=== PATIENT | female | born 1965 | race Caucasian/White ===

== ENCOUNTER → 2020-01-14 11:14 | Outpatient (CLI) | payer OTHER, SELFPAY ==
--- NOTE | ~2020-01-14 | MR_ITS ---
EXAMINATION: MR lumbar spine wo con EXAM DATE: 01/14/2020 12:00 INDICATION: Low back pain. History of spinal stenosis. Left hip and bilateral knee pain. TECHNIQUE: Multi-sequential, multiplanar MR images of the lumbar spine were obtained without contrast . Sagittal T1, T2, T2 fat saturation images. Axial T2 weighted images. There is no prior study for comparison. FINDINGS: There is mild upper lumbar dextroscoliosis. There is mild to moderate disc disease at L2-3 and L3-4, mild at L4-5 and L5-S1. There is 2 mm retrolisthesis L3 on L4. The conus medullaris termina brooke at the L1/2 level and has normal signal intensity and morphology. There are no suspicious marrow signal abnormalities. Paraspinal soft tissue is unremarkable. Level by level evaluation: T12-L1: Disc does not extend beyond the endplate margin. Facet arthropathy: Mild. Neural foraminal stenosis: No stenosis. Central canal stenosis: No stenosis. L1-L2: Disc does not extend beyond the endplate margin. Facet arthropathy: Mild. Neural foraminal stenosis: No stenosis. Central canal stenosis: No stenosis. L2-L3: There is a mild diffuse disc bulge. Facet arthropathy: Mild. Neural foraminal stenosis: No stenosis. Central canal stenosis: Mild. L3-L4: There is a moderate diffuse disc bulge. Facet arthropathy: Mild to moderate. Neural foraminal stenosis: Mild left. Central canal stenosis: Mild to moderate. Some nerve root crowding. L4-L5: There is a mild to moderate diffuse disc bulge. Facet arthropathy: Mild to moderate. Neural foraminal stenosis: Mild bilateral. Central canal stenosis: Mild to moderate. L5-S1: There is a mild diffuse disc bulge. Facet arthropathy: Mild. Neural foraminal stenosis: No stenosis. Central canal stenosis: Mild. IMPRESSION: 1. Mild to moderate lumbar spondylosis. 2. Mild upper lumbar dextroscoliosis. Reviewed, dictated and finalized at location A.
== END ==
PROVIDERS: PCP Internal Medicine; Visit Provider Physical Medicine & Rehabilitation Pain Medicine
DX: M48.07 Spinal stenosis, lumbosacral region (principal); M47.896 Other spondylosis, lumbar region
CPT/HCPCS: 72148

== ENCOUNTER 2020-03-29 11:10 | Observation (INO) | payer OTHER, SELFPAY ==
[2020-03-29] VITALS (11 sets, daily range): BP systolic 101–156; BP diastolic 54–92; PULSE 80–113; RESP 7–18; TEMP 36.1–36.6; O2SAT 97–100; BMI 23.3
--- NOTE | ~2020-03-29 | NM_ITS ---
EXAMINATION: NM gene stress w perfusion DATE: 03/30/2020 09:50 INDICATION: Chest pain. TECHNIQUE: Rest images were obtained following intravenous administration of 10.5 mCi Tc99m tetrofosm in (Myoview). The patient was infused intravenously with Lexiscan (regadenoson). Then, 33 mCi Tc99m t etrofosmin (Myoview) was administered intravenously, and stress images were obtained. Data was recons tructed into short axis and horizontal and vertical long axis SPECT images. Gated SPECT images were a lso obtained. COMPARISON: CT abdomen and pelvis 11/26/2017 FINDINGS: There is no definite reversible or fixed perfusion abnormality to suggest ischemia or infar ction. There is no segmental wall motion abnormality. Left ventricular ejection fraction measures > 70%. IMPRESSION: 1. No definite ischemia or infarct. 2. Normal left ventricular ejection fraction measuring >70%. Reviewed, dictated and finalized at location A.
--- NOTE | ~2020-03-29 | XR_ITS ---
EXAMINATION: XR chest 2V DATE: 03/29/2020 11:50 INDICATION: Chest pain. Palpitations. TECHNIQUE: Frontal and lateral views of the chest were obtained. COMPARISON: Chest single view 02/21/2019 FINDINGS: A calcified right lung nodule and calcified hilar lymph nodes are consistent with old granu lomatous disease. No pleural effusion or pneumothorax. The heart size is normal. Surgical clips in th e right upper quadrant are likely from cholecystectomy. IMPRESSION: 1. No acute cardiopulmonary disease. Reviewed, dictated and finalized at location A.
--- NOTE | 2020-03-29 11:16 | ED.GENADULT ---
HPI - General Adult General Chief complaint: Chest Pain Stated complaint: heart palpations, nausea, ALMEIDA Time Seen by Provider: 03/29/20 11:16 Source: patient Mode of arrival: ambulatory Limitations: no limitations History of Present Illness HPI narrative: Patient is a 54-year-old female with a history of fibromyalgia, depression, who presents for evaluation of chest pain. Patient reports pain in the center of her chest over the past several days. Patient states that she just does not feel right. She endorses fatigue, weakness without focal numbness or focal weakness. She reports nausea without vomiting. No fever, chills, cough or shortness of breath. She reports palpitations. She reports chest pain which is dull and aching in nature without radiation to the jaw, shoulder, or back. No abdominal pain. No flank pain. Patient reports chronic back pain which is unchanged. No difficulty with ambulation. No vision changes. Patient currently undergoing a work-up for lupus. Related Data Home Medications Medication Instructions Recorded Confirmed aspirin 81 mg PO DAILY 03/29/20 bupropion HCl 150 mg PO QAM 03/29/20 duloxetine 62 mg PO BID 03/29/20 levothyroxine 25 mcg PO QAM 03/29/20 montelukast [Singulair] 10 mg PO HS 03/29/20 pilocarpine HCl 10 mg PO TID 03/29/20 pregabalin 75 mg PO BID 03/29/20 03/29/20 Allergies Allergy/AdvReac Type Severity Reaction Status Date / Time No Known Allergies Allergy Verified 03/29/20 11:51 Review of Systems Review of Systems: Narrative: CONSTITUTIONAL: Denies fever, chills, or sweats. EYES: Denies visual changes, redness, or discharge. ENT: Denies rhinorrhea, congestion, sore throat, or otalgia. CARDIOVASCULAR: Reports chest pain, palpitations, denies edema RESPIRATORY: Denies cough or dyspnea. GASTROINTESTINAL: Denies abdominal pain, reports nausea, no vomiting GENITOURINARY: Denies dysuria or hematuria. SKIN: Denies rash or itching. MUSCULOSKELETAL: Reports chronic back pain NEUROLOGIC: Reports headache, denies numbness, reports nonfocal weakness PSYCHIATRIC: Reports anxiety and depression PMF Past Medical History Medical History (Updated 03/29/20 @ 13:40 by Isabella Stewart MD) Anxiety Depression Fibromyalgia Surgical History Surgical History (Updated 03/29/20 @ 11:32 by Isabella Stewart MD) History of appendectomy Hx of cholecystectomy Family History Family History (Updated 02/01/18 @ 08:14 by DOCTOR UNKNOWN) Mother Hypertension Sibling Hypertension Family history of malignant neoplasm of breast in first degree relative Father Hypertension Other Diabetes mellitus Family history of malignant neoplasm Social History Social History Smoking status: Never smoker Alcohol intake: current Gender identity (if verbalized by the patient): Female Exam Narrative: Exam Narrative: GENERAL: Awake, alert, conversant HEAD: Normocephalic, atraumatic. EYES: PERRLA and EOMI. ENT: Nares clear, no rhinorrhea or epistaxis. Mucous membranes moist. NECK: Supple. CHEST: No respiratory distress, breathing even and non labored HEART: Borderline tachycardic rate, sinus rhythm ABDOMEN:Non distended, non tender EXTREMITIES: Normal range of motion. No edema. SKIN: Warm, dry, no rash. NEURO:No focal deficits. Alert and oriented x3 Psych: Flat affect, appears anxious Course Vital Signs Vital signs: Vital Signs Temperature 36.4 C L 03/29/20 11:18 Pulse Rate 103 H 03/29/20 11:18 Respiratory Rate 12 03/29/20 11:18 Blood Pressure 156/92 H 03/29/20 11:18 Pulse Oximetry 98 03/29/20 11:18 Temperature 36.4 C L 03/29/20 11:18 Pulse Rate 94 03/29/20 13:35 Respiratory Rate 15 03/29/20 13:35 Blood Pressure 145/84 H 03/29/20 13:35 Pulse Oximetry 97 03/29/20 13:35 Medical Decision Making MDM Narrative Medical decision making narrative: Patient presented for evaluation o
--- NOTE | 2020-03-29 11:17 | ECG_ITS ---
Measurements Intervals [place] Rate: 92 P: 78 AL: 152 QRS: 69 QRSD: 83 T: 66 QT: 307 QTc: 381 Interpretive Statements SINUS RHYTHM POSSIBLE RIGHT ATRIAL ENLARGEMENT LEFT ATRIAL ENLARGEMENT RSR' IN V1 OR V2, PROBABLY NORMAL VARIANT BORDERLINE ST ABNORMALITY- ANTEROLAT/INF LEADS BASELINE ARTIFACT- I, II, III, AVR, AVL, AVF BORDERLINE ECG Electronically Signed On 03-29-2020 11:47:55 CDT by Efe Ryan D.O.
[2020-03-29] MEDS: ASPIRIN 81 MG CHEWABLE TABLET 324 MG PO (11:30)
--- NOTE | 2020-03-29 11:32 | PC.NURSE ---
Called lab to add on d-dimer.
--- NOTE | 2020-03-29 11:33 | PC.NURSE ---
Called lab to add on TSH.
[2020-03-29 11:46] LABS: Basophils Absolute Auto 0.1 K/mm3 (0.0-0.1); Basophils Percent Auto 0.8 % (0.2-1.2); Eosinophils Absolute Auto 0.2 K/mm3 (0-0.3); Eosinophils Percent Auto 3.2 % (0-4.4); Hematocrit 46.2 % (37.0-47.0); Hemoglobin 15.9 g/dL (12.0-15.0); Immature Granulocyte Absolute 0.03 K/mm3 (0.00-0.031); Immature Granulocyte Percent A 0.4 % (0-0.5); Lymphocytes Absolute Auto 1.98 K/mm3 (0.9-3.2); Lymphocytes Percent Auto 27.9 % (18.3-44.2); Mean Corpuscular HGB Conc 34.4 g/dl (32-36); Mean Corpuscular Hemoglobin 29.1 pg (26-34); Mean Corpuscular Volume 84.6 fl (80-100); Mean Platelet Volume 9.7 fl (7.4-10.4); Monocytes Absolute Auto 0.4 K/mm3 (0.1-0.6); Monocytes Percent Auto 6.2 % (2.6-8.5); Neutrophils Absolute Auto 4.4 K/mm3 (1.3-6.7); Neutrophils Percent Auto 61.5 % (45.5-73.1); Platelet Count Result 359 k/mm3 (150-375); Red Blood Count 5.46 M/mm3 (4.2-5.4); Red Cell Distribution Width 12.4 % (11.5-14.5); White Blood Count 7.1 K/mm3 (4.5-10.0)
[2020-03-29] MEDS: NITROGLYCERIN SL 0.4 MG TABLET SUBLINGUAL ×3 (12:02→21:49)
[2020-03-29] MEDS: ACETAMINOPHEN 500 MG TABLET 1000 MG PO (12:03)
[2020-03-29] MEDS: MORPHINE SULFATE 4 MG/ML INJ IV PUSH (12:03)
[2020-03-29] MEDS: SODIUM CHLORIDE 0.9% IV 1,000 ML 999 ML IV CONT (12:03)
[2020-03-29] MEDS: ONDANSETRON INJ 4 MG/2 ML VIAL IV PUSH ×2 (12:03→15:20)
[2020-03-29 12:19] LABS: Blood Urea Nitrogen 9 mg/dL (7-17); Calcium 9.8 mg/dL (8.4-10.2); Carbon Dioxide 32 mmol/L (22-30); Chloride 104 mmol/L (98-107); Estimated CRCL calculation 57 ml/min; Estimated Glomerular Filt Rate > 60; Glucose 98 mg/dL (65-105); Potassium 4.5 mmol/L (3.4-5.0); Sodium 139 mmol/L (137-145)
[2020-03-29 12:21] LABS: Prothrombin Time 12.5 Seconds (11.1-14.7)
[2020-03-29 12:22] LABS: Partial Thromboplastin Time 40.5 SECONDS (22.3-36.8)
[2020-03-29 12:27] LABS: D Dimer 0.27 ug/mL (<0.48)
[2020-03-29 12:31] LABS: Troponin I < 0.012 ng/mL (0.000-0.034)
[2020-03-29 13:30] LABS: Add Urine Microscopic? YES; Appearance Urine Clear (Clear); Bacteria Urine 1+ /hpf; Bilirubin Urine Negative (Negative); Blood Urine 1+ (Negative); Color Urine Straw (Yellow); Glucose Urine UA Negative (Negative); Ketones Urine Negative (Negative); Leukocyte Esterase Ur Negative LEU/UL (Negative); Nitrate Urine Negative (Negative); Protein Urine Negative (Negative); Specific Grav Ur 1.005 (1.001-1.035); Urobilinogen Urine Negative mg/dL (<2.0); WBC Urine 0-3 /hpf
[2020-03-29 14:50] LABS: Troponin I < 0.012 ng/mL (0.000-0.034)
--- NOTE | 2020-03-29 15:31 | ADMGEN ---
This patient, Betina Sweeney, was admitted to IMU Room 212-01. Patient/family oriented to hospital policies and general routines including ID bracelet, bed and alarms, visiting hours, pain management, procedures, bathroom and other care routines, personal items, smoking policy, room service/diet, and visiting hours. Valuables list has been completed. Information on how to activate the Rapid Response Team has been discussed. Patient/Family are encouraged to report perceived risks to care and to ask questions if they do not understand what they are told or what they should do.
--- NOTE | 2020-03-29 15:52 | PM.IMHP ---
H&P: HPI History of Present Illness Chief complaint: chest pain Narrative: Cardiology short-stay H and P summary: Chief complaint: Chest pain Betina Sweeney is a 54 year old female with past medical history significant for fibromyalgia, depression, hypothyroidism who was in her usual state of health when she noted 5 days or so ago feeling more fatigue, generalized weakness just not feeling well. This morning she woke around 7:00 a.m. not feeling well but without chest pain until after making breakfast for her she felt very fatigued and wiped out so she laid down on the couch for approximately 15 minutes. No clear aggravating or relieving factor, although she admits it was made worse with ambulation at one point earlier today. She then awoke with significant 7/10 chest pain described as a tightness radiating across the left and right side like a band. There is no further radiation or associated shortness of breath. She did note sensations of needing to take a deeper breath but denies limiting exertional dyspnea. She notes she has been very fatigued for the past couple days has been sleeping an unusual amount. She gets exhausted with minimal activities which she was able to tolerate well previously. She states that her current symptoms are nothing like her fibromyalgia. She notified her primary care physician who advised her to present to the emergency department. In the ER she was experiencing chest pain for which she received sublingual nitroglycerin and intravenous morphine. She states her pain improved and nearly completely resolved she thinks most directly after 2 sublingual nitroglycerin but then gradually returned. She noted nausea throughout the week and in association with this chest pain for which Zofran was administered. She denies palpitations, dizziness, near-syncope or syncope. She woke up with a headache and ringing in her ears as well. Denies fevers, chills, cough, lower extremity edema, orthopnea or PND. She denies recent illnesses or sick contacts. She denies abdominal pain. Her symptoms have no association with meals. She denies dysuria, hematuria, melena, bright red blood per rectum. She was sent only change in her medications was increase in her Lyrica from 75 mg to 100 mg twice daily on Thursday. She has no history of CAD, dyslipidemia, diabetes mellitus, PE/DVT or bleeding complications. She has a history of palpitations but no diagnosed arrhythmia. She notes her blood pressure had been elevated prior to her to her diagnosis of fibromyalgia which date review to pain and has been off medications for quite some time. She rates her current discomfort as a 4/10 but declined nitroglycerin or other treatment. Review of Systems Review of Systems: All systems reviewed & are unremarkable except as noted in HPI and below Constitutional: Constitutional: Reports as per HPI, Reports no additional constitutional complaints, Reports fatigue, Reports lethargy and Reports weakness Eyes: Eyes: Reports as per HPI and Reports no additional eye complaints ENT: Reports system reviewed and no additional complaints, except as documented and Reports as per HPI Cardiovascular: Cardiovascular: Reports as per HPI, Reports no additional cardiovascular complaints and Reports chest pain Respiratory: Respiratory: Reports as per HPI, Reports no additional respiratory complaints, Denies cough, Denies dyspnea, Denies dyspnea on exertion and Denies wheezing Gastrointestinal: Gastrointestinal: Reports as per HPI, Reports no additional gastrointestinal complaints, Denies abdominal pain, Denies melena, Denies hematochezia, Denies heartburn, Denies diarrhea, Reports nausea, Denies vomiting and Denies hematemesis Genitourinary: Genitourinary: Reports as per HPI, Denies hematuria and Denies dysuria Musculoskeletal: Musculoskeletal: Reports no additional musculoskeletal complaints and Reports as per HPI Integumentary/Breasts: Skin/Breast: Reports syste
[2020-03-29] MEDS: PREGABALIN 50 MG CAPSULE 100 MG PO (17:25)
[2020-03-29] MEDS: DULOXETINE 60 MG CAPSULE.DR PO (17:25)
[2020-03-29] MEDS: PANTOPRAZOLE 40 MG TABLET PO (17:25)
[2020-03-29 19:10] LABS: Troponin I < 0.012 ng/mL (0.000-0.034)
[2020-03-29] MEDS: MONTELUKAST SODIUM 10 MG TABLET PO (20:03)
[2020-03-29] MEDS: ACETAMINOPHEN 325 MG TABLET 650 MG PO (21:49)
[2020-03-30] VITALS (8 sets, daily range): BP systolic 101–129; BP diastolic 53–83; PULSE 67–94; RESP 12–18; TEMP 36.3–36.7; O2SAT 97–100
[2020-03-30] MEDS: LEVOTHYROXINE SODIUM 25 MCG TABLET PO (05:44)
--- NOTE | 2020-03-30 08:30 | EST_ITS ---
Patient Info Name: Betina Sweeney Age: 54 years : 1965 Gender: Female Ht: 62 in Wt: 127 lbs BSA: 1.59 m2 Exam Date: 03/30/2020 8:44 AM Exam Location: [facility] Stress Patient Status: Inpatient Admit Date: 03/29/2020 Staff Ordering Physician: Mary Bedoya APRN Attending Provider: Tyler Sheriff MD Exercise Technologist: Jabari Beasley, RDZAK, RT Nurse: Mary Bedoya, ANP, ACNP-BC Exam Type: CA stress gene w NM Study Info A regadenoson stress test was performed. Summary 1. Normal sinus rhythm - normal ECG. 2. No abnormal ST/T wave changes with exercise. 3. Clinically and electrocardiographically nedative Lexiscaan stress test. 4. Perfusion imaging result per radiology. Protocol: Lexiscan Stress ECG Details Stage: REST Duration (min): 2 min : 4 sec HR (bpm): 73 SBP (mmHg): 114 DBP (mmHg): 86 Stage: REST Duration (min): 11 min : 22 sec HR (bpm): 83 SBP (mmHg): 114 DBP (mmHg): 86 Stage: STAGE 1 Duration (min): 1 min : 0 sec HR (bpm): 106 SBP (mmHg): 109 DBP (mmHg): 84 Stage: RECOVERY Duration (min): 1 min : 0 sec HR (bpm): 111 SBP (mmHg): 109 DBP (mmHg): 84 Stage: RECOVERY Duration (min): 2 min : 0 sec HR (bpm): 114 SBP (mmHg): 109 DBP (mmHg): 84 Stage: RECOVERY Duration (min): 3 min : 0 sec HR (bpm): 112 SBP (mmHg): 139 DBP (mmHg): 76 Stage: RECOVERY Duration (min): 3 min : 58 sec HR (bpm): 104 SBP (mmHg): 139 DBP (mmHg): 76 Rest HR: 83 bpm Peak HR: 116 bpm Rest Sys BP: 114 mmHg Peak Sys BP: 139 mmHg Max Pred HR: 168 bpm % Max Pred HR: 69 % Target HR: 143 bpm Max RPP: 16,124 bpm*mmHg BP Response: Normal blood pressure response Termination Reason: Completed protocol Cardiac Symptoms: None Total Time: 1 min : 0 sec Rest [place] BP: 86 mmHg Peak [place] BP: 76 mmHg Total Dose: 0.4 mg Resting ECG Normal sinus rhythm - normal ECG. Stress ECG No abnormal ST/T wave changes with exercise. Report Signatures
--- NOTE | 2020-03-30 09:06 | PM.PNCARD ---
Progress Note: A&P Assessment and Plan (1) Atypical chest pain: Code(s): R07.89 - Other chest pain Status: Acute Assessment and Plan: Lexiscan pending. (2) Hypothyroidism: Qualifiers: Hypothyroidism type: unspecified Qualified Code(s): E03.9 - Hypothyroidism, unspecified Code(s): E03.9 - Hypothyroidism, unspecified Status: Acute Assessment and Plan: Continue home medical therapy (3) Fibromyalgia: Code(s): M79.7 - Fibromyalgia Status: Acute Assessment and Plan: Continue of home medical therapy with Cymbalta and Lyrica. (4) Depression: Qualifiers: Depression Type: unspecified Qualified Code(s): F32.9 - Major depressive disorder, single episode, unspecified Code(s): F32.9 - Major depressive disorder, single episode, unspecified Status: Acute Assessment and Plan: Stable. Home medical therapy Additional Plan Further recommendations pending the results of the Lexiscan. Plan discussed with Dr Mosher [id number] 03/30/2020 Time Spent With Patient Time with patient: less than 15 minutes Subjective Date/time seen: 03/30/20 09:06 Interval history: Follow-up for: Chest pain Date of service: 03/30/2020 Subjective: Episode of sharp chest discomfort during the night. No chest pressure at the start of her stress test. Denied shortness of breath. Review of Systems Constitutional: Constitutional: Reports fatigue, Reports lethargy and Reports weakness Eyes: Eyes: Denies blurry vision ENT: Denies lip swelling, Denies throat swelling and Denies tongue swelling Cardiovascular: Cardiovascular: Reports chest pain (Episode of sharp discomfort overnight. No pressure at this time), Denies dyspnea and Denies dyspnea on exertion Respiratory: Respiratory: Denies cough, Denies dyspnea, Denies dyspnea on exertion and Denies wheezing Gastrointestinal: Gastrointestinal: Denies abdominal pain, Denies melena, Denies hematochezia, Denies heartburn, Denies diarrhea, Reports nausea, Denies vomiting and Denies hematemesis Genitourinary: Genitourinary: Denies hematuria and Denies dysuria Integumentary/Breasts: Skin/Breast: Denies rash Neurologic: Reports weakness Psychiatric: Psychiatric: Reports depression Endocrine: Endocrine: Reports fatigue Hematologic/Lymphatic: Hematologic/Lymphatic: Denies easy bleeding and Denies easy bruising Allergic/Immunologic: Allergic/Immunologic: Denies lip swelling, Denies throat swelling, Denies tongue swelling and Denies wheezing Exam Narrative: Exam Narrative: Seen in stress lab Const: General: comfortable and no acute distress HENMT: General nose exam: Normal nares present and no epistaxis Eyes: Sclera: sclerae normal Neck: Neck: supple and no JVD Resp: Auscultation: clear to auscultation bilaterally Cardio: Rate: regular rate Rhythm: regular rhythm GI: GI Palp: Yes Soft to palpation Auscultation: normal bowel sounds Skin: General skin exam: no rashes or lesions noted Neuro: Speech: normal speech Extrem: General: normal to inspection and no edema Psych: Affect: Sad affect present Objective Data Vital Signs Vital Signs: Vital Signs - 24 hr 03/29/20 11:18 03/29/20 12:12 03/29/20 13:01 Temperature 36.4 C L Pulse Rate 103 H 113 H 87 Respiratory Rate 12 12 7 L Blood Pressure 156/92 H 128/76 152/79 H Pulse Oximetry 98 98 99 03/29/20 13:35 03/29/20 14:01 03/29/20 15:10 Temperature Pulse Rate 94 88 106 H Respiratory Rate 15 11 L 14 Blood Pressure 145/84 H 139/72 131/86 Pulse Oximetry 97 100 03/29/20 16:00 03/29/20 16:11 03/29/20 18:00 Temperature 36.6 C Pulse Rate 86 80 96 Respiratory Rate 12 Blood Pressure 133/75 Pulse Oximetry 99 03/29/20 20:00 03/29/20 22:00 03/30/20 00:00 Temperature 36.1 C L 36.4 C L Pulse Rate 95
[2020-03-30] MEDS: ASPIRIN 81 MG CHEWABLE TABLET PO (10:48)
[2020-03-30] MEDS: PANTOPRAZOLE 40 MG TABLET PO (10:50)
[2020-03-30] MEDS: DULOXETINE 60 MG CAPSULE.DR PO (10:50)
[2020-03-30] MEDS: PREGABALIN 50 MG CAPSULE 100 MG PO (10:50)
--- NOTE | 2020-03-30 11:15 | PM.DS ---
DS: Admitting Diagnosis Admitting Diagnosis Admitting Diagnosis: Other chest pain DS: Discharge Diagnosis Discharge Diagnosis (1) Atypical chest pain: Code(s): R07.89 - Other chest pain Status: Acute Assessment and Plan: Lexiscan negative for ischemia (2) Hypothyroidism: Qualifiers: Hypothyroidism type: unspecified Qualified Code(s): E03.9 - Hypothyroidism, unspecified Code(s): E03.9 - Hypothyroidism, unspecified Status: Acute Assessment and Plan: Continue home medical therapy (3) Fibromyalgia: Code(s): M79.7 - Fibromyalgia Status: Acute Assessment and Plan: Continue of home medical therapy with Cymbalta and Lyrica. (4) Depression: Qualifiers: Depression Type: unspecified Qualified Code(s): F32.9 - Major depressive disorder, single episode, unspecified Code(s): F32.9 - Major depressive disorder, single episode, unspecified Status: Acute Assessment and Plan: Stable. Home medical therapy DS: Summary Hospital Course Reason for hospitalization: chest pain Hospital Course: Admitted 03/29/2020 from the ER for chest discomfort. Troponin negative X3. She was monitored over night. She had one episode of sharp pain during the night. No chest pressure at the time of the stress test. Lexiscan nuclear stress test was negative for ischemia. She was started on Protonix. She was discharged home in pain free condition Status at Discharge Functional status at discharge: independent ambulation Overall status at discharge: patient is back to baseline Time Spent with Patient Time attestation: Total time spent providing and/or coordinating discharge services: 20 minutes Time spent: Less than 30 minutes Exam Const: General: comfortable and no acute distress HENMT: General nose exam: Normal nares present and no epistaxis Eyes: Sclera: sclerae normal Neck: Neck: supple and no JVD Resp: Auscultation: clear to auscultation bilaterally Cardio: Rate: regular rate Rhythm: regular rhythm GI: Auscultation: normal bowel sounds Skin: General skin exam: no rashes or lesions noted Neuro: Speech: normal speech Extrem: General: normal to inspection and no edema Psych: Affect: Sad affect present DS: Data Data Completed and Pending Labs on day of discharge: Labs from last 24 hours 03/29/20 03/29/20 03/29/20 18:30 14:20 13:13 WBC RBC Hgb Hct MCV MCH MCHC RDW Plt Count MPV Immature Gran % (Auto) Neut % (Auto) Lymph % (Auto) [place] % (Auto) Eos % (Auto) Baso % (Auto) Lymph # (Auto) [place] # (Auto) Eos # (Auto) Baso # (Auto) Abs Immat Gran (auto) Absolute Neuts (auto) Absolute Nucleated RBC Nucleated RBC % PT INR APTT D-Dimer Sodium Potassium Chloride Carbon Dioxide BUN Creatinine Estim Creat Clear Calc Estimated GFR Glucose Calcium Troponin I < 0.012 < 0.012 TSH Urine Color Straw Urine Appearance Clear Urine pH 6.0 Ur Specific [place] 1.005 Urine Protein Negative Urine Glucose (UA) Negative Urine Ketones Negative Ur Blood (Man) 1+ H Urine Nitrate Negative Urine Bilirubin Negative Urine Urobilinogen Negative Leukocyte Esterase Rfl Negative Urine WBC 0-3 Urine Bacteria 1+ H 03/29/20 03/29/20 03/29/20 11:58 11:58 11:57 WBC RBC Hgb Hct MCV MCH MCHC RDW Plt Count MPV Immature Gran % (Auto) Neut % (Auto) Lymph % (Auto) [place] % (Auto) Eos % (Auto) Baso % (Auto) Lymph # (Auto) [place] # (Auto) Eos # (Auto) Baso # (Auto) Abs Immat Gran (auto) Absolute Neuts (auto) Absolute Nucleated RBC Nucleated RBC % PT 12.5 INR 1.0 APTT 40.5 H
== END 2020-03-30 13:20 | disposition home or self-care (01) ==
LOC: ANHED 13:40 → ANHIMU 14:25
PROVIDERS: Admitting Provider Internal Medicine Cardiovascular Disease; Emergency Provider Emergency Medicine; PCP Internal Medicine; Visit Provider Internal Medicine Cardiovascular Disease
DX: R07.89 Other chest pain (principal); E03.9 Hypothyroidism, unspecified; M79.7 Fibromyalgia; F32.9 Major depressive disorder, single episode, unspecified; Z79.82 Long term (current) use of aspirin; Z79.899 Other long term (current) drug therapy
CPT/HCPCS: 36415; 71046; 78452; 80048; 81001; 84443; 84484; 85025; 85380; 85610; 85730; 93005; 93017; 96361; 96374; 96375; 96376; 99285; A9270; A9502; G0378; J2270; J2405; J2785; J7030

== ENCOUNTER → 2020-06-12 16:07 | Outpatient (CLI) | payer OTHER, SELFPAY ==
--- NOTE | ~2020-06-12 | XR_ITS ---
XR hand RT 2V DATE: 06/12/2020 16:36 INDICATION: Right hand pain. Polyarticular pain. TECHNIQUE: AP and lateral views COMPARISON: None FINDINGS: There is osteophyte is at the first carpometacarpal joint and at the first metacarpophalang eal and multiple interphalangeal joints. Classic distribution for osteoarthritis. No erosive change i s noted. No fracture, dislocation, periosteal reaction or bone destruction. No chondrocalcinosis. IMPRESSION: Polyarticular osteoarthritis Reviewed, dictated and finalized at location A.
--- NOTE | ~2020-06-12 | XR_ITS ---
XR ankle LT 2V DATE: 06/12/2020 16:36 INDICATION: Polyarticular joint pain TECHNIQUE: 2 views COMPARISON: None FINDINGS: There is mild plantar and moderate posterior calcaneal enthesopathy. No fracture or dislocation of the ankle or disruption of the ankle mortise. No periosteal reaction or bone destruction. IMPRESSION: Calcaneal enthesopathy Reviewed, dictated and finalized at location A. IMPRESSION: Calcaneal enthesopathy
--- NOTE | ~2020-06-12 | XR_ITS ---
XR knee LT 2V DATE: 06/12/2020 16:36 INDICATION: Polyarticular joint pain TECHNIQUE: Standing AP and lateral views COMPARISON: None FINDINGS: Superior pole patellar enthesopathy at quadriceps tendon insertion. No fracture or dislocation or joint effusion. No periosteal reaction or bone destruction, radiopaque intra-articular loose body or chondrocalcinosis. IMPRESSION: Patellar enthesopathy Reviewed, dictated and finalized at location A. IMPRESSION: Patellar enthesopathy
--- NOTE | ~2020-06-12 | XR_ITS ---
XR wrist LT 2V DATE: 06/12/2020 16:36 INDICATION: Left wrist pain. Polyarticular pain. TECHNIQUE: AP and lateral views COMPARISON: None FINDINGS: There is osteoarthritis at the triscaphe joint. There is minimal osteoarthritis at the firs t carpometacarpal joint. There is osteoarthritis at the first metacarpophalangeal and first interphal angeal joints. No fracture or dislocation, periosteal reaction or bone destruction. IMPRESSION: Osteoarthritis Reviewed, dictated and finalized at location A. IMPRESSION: Osteoarthritis
--- NOTE | ~2020-06-12 | XR_ITS ---
XR knee RT 2V DATE: 06/12/2020 16:36 INDICATION: Polyarticular joint pain TECHNIQUE: Standing AP and lateral views COMPARISON: None FINDINGS: There is superior pole patellar enthesopathy. No fracture or dislocation or joint effusion, radiopaque intra-articular loose body or chondrocalcino sis. Joint spaces are well preserved. IMPRESSION: Patellar enthesopathy Reviewed, dictated and finalized at location A. IMPRESSION: Patellar enthesopathy
--- NOTE | ~2020-06-12 | XR_ITS ---
XR ankle RT 2V DATE: 06/12/2020 16:36 INDICATION: Polyarticular pain TECHNIQUE: 2 views COMPARISON: None FINDINGS: There is mild plantar calcaneal enthesopathy. There is calcification of the distal Achilles tendon. No fracture or dislocation of the ankle or disruption of the ankle mortise. No periosteal reaction or bone destruction. IMPRESSION: Plantar calcaneal enthesopathy Distal Achilles tendon calcification Reviewed, dictated and finalized at location A.
--- NOTE | ~2020-06-12 | XR_ITS ---
XR wrist RT 2V DATE: 06/12/2020 16:36 INDICATION: Right wrist pain. Multiple joint pain. TECHNIQUE: AP and lateral views COMPARISON: None FINDINGS: There is mild osteoarthritis at the first carpometacarpal joint. No fracture, dislocation, periosteal reaction or bone destruction, erosive change or chondrocalcinosi s. IMPRESSION: Mild osteoarthritis at the first carpometacarpal joint Reviewed, dictated and finalized at location A.
--- NOTE | ~2020-06-12 | XR_ITS ---
XR hand LT 2V DATE: 06/12/2020 16:36 INDICATION: Left hand pain. Polyarticular pain. TECHNIQUE: AP and lateral views COMPARISON: None FINDINGS: There is osteophytic change at the triscaphe joint, first carpometacarpal joint, first meta carpophalangeal and interphalangeal joints. There is osteoarthritic changes of the interphalangeal lillian ints, primarily distally. No fracture, dislocation, periosteal reaction or bone destruction, erosive change or chondrocalcinosi s. IMPRESSION: Polyarticular osteoarthritis Reviewed, dictated and finalized at location A.
--- NOTE | ~2020-06-12 | XR_ITS ---
XR foot LT 2V DATE: 06/12/2020 16:36 INDICATION: Left foot pain. Polyarticular pain. TECHNIQUE: AP and lateral views COMPARISON: None FINDINGS: Mild plantar and more prominent posterior calcaneal enthesopathy. There is modest arthritis at the first metatarsophalangeal joint. No fracture or dislocation, periosteal reaction or bone destruction. IMPRESSION: Plantar and posterior calcaneal enthesopathy Osteoarthritis at first metatarsophalangeal joint Reviewed, dictated and finalized at location A.
--- NOTE | ~2020-06-12 | XR_ITS ---
XR foot RT 2V DATE: 06/12/2020 16:36 INDICATION: Right foot pain. Polyarticular pain. TECHNIQUE: AP and lateral views COMPARISON: None FINDINGS: There is mild plantar calcaneal enthesopathy. There is distal Achilles tendon calcification . There is mild osteoarthritis at the first metatarsophalangeal joint. No fracture, dislocation, periosteal reaction or bone destruction. IMPRESSION: Plantar calcaneal enthesopathy Distal Achilles tendon calcification Mild osteoarthritis at first metatarsophalangeal joint Reviewed, dictated and finalized at location A.
== END ==
PROVIDERS: Visit Provider Internal Medicine Rheumatology
DX: M77.32 Calcaneal spur, left foot (principal); M77.31 Calcaneal spur, right foot; M19.071 Primary osteoarthritis, right ankle and foot; M19.041 Primary osteoarthritis, right hand; M19.031 Primary osteoarthritis, right wrist; M19.042 Primary osteoarthritis, left hand; M19.032 Primary osteoarthritis, left wrist
CPT/HCPCS: 73100; 73120; 73560; 73600; 73620

== ENCOUNTER 2021-11-06 07:18 | Outpatient (RCR) | payer OTHER, SELFPAY ==
[2021-11-06] MEDS: ACETAMINOPHEN 325 MG TABLET 650 MG PO (07:26)
[2021-11-06] MEDS: FAMOTIDINE 20 MG TABLET PO (07:27)
[2021-11-06] MEDS: diphenhydrAMINE HCl CAP 25 MG CAPSULE PO (07:27)
[2021-11-06 07:34] VITALS: BP 134/76; PULSE 86; RESP 18; TEMP 36.2; O2SAT 99
[2021-11-06 08:56] VITALS: BP 106/68; PULSE 88; O2SAT 100
--- NOTE | 2021-11-07 12:55 | PC.NURSE ---
Called Ms Sweeney and she stated she is feeling better today. She stated she has less tightness in her chest, and feels good. No other questions at this time.
== END 2021-11-06 17:00 ==
LOC: AMCINF 07:18
PROVIDERS: PCP Physician Assistant Medical; Referring Provider Physician Assistant Medical; Visit Provider Internal Medicine Hematology & Oncology
DX: U07.1 COVID-19 (principal); D84.9 Immunodeficiency, unspecified
CPT/HCPCS: A9270; M0247

== ENCOUNTER 2023-07-27 18:33 | Emergency (ER) | payer OTHER, SELFPAY ==
--- NOTE | ~2023-07-27 | XR_ITS ---
EXAM: XR foot LT min 3V DATE: 07/27/2023 18:56 HISTORY: fell on left foot, pain to top of mid left foot . COMPARISON: None available. FINDINGS: Normal mineralization. Nondisplaced fractures of the proximal aspect of the third and four th metatarsals. No lytic or blastic lesion. Scattered mild degenerative change. Achilles and plantar enthesopathy. No erosion or periosteal change. Soft tissues within normal limits. IMPRESSION: Nondisplaced fractures of the proximal third and fourth metatarsals. Reviewed, dictated and finalized at location K. IMPRESSION: Nondisplaced fractures of the proximal third and fourth metatarsals .
[2023-07-27 18:40] VITALS: BP 134/88; PULSE 99; RESP 16; TEMP 36.4; O2SAT 100
--- NOTE | 2023-07-27 18:44 | ED.LOWEXIN ---
HPI - Extremity Injury (Lower) General Chief Complaint: Extremity Injury, Lower Stated Complaint: Injured left foot Time Seen by Provider: 07/27/23 18:44 Source: patient Mode of arrival: ambulatory Limitations: no limitations History of Present Illness HPI Narrative: Patient is a 58-year-old female that presents with left foot pain after walking up hill and sliding backwards falling with foot underneath her. Patient reports accident happened 2 hours ago and reports slight swelling and pain to top of left foot. Denies any numbness or tingling to toes. Related Data Home Medications Medication Instructions Recorded Confirmed duloxetine 60 mg capsule,delayed 60 mg PO BID 03/29/20 07/27/23 release (Cymbalta) albuterol 90 mcg/actuation aerosol 90 mcg inhalation DAILY 11/06/21 07/27/23 inhaler folic acid 1 mg tablet 1 mg PO DAILY 11/06/21 07/27/23 pramipexole 0.125 mg tablet 0.125 mg PO HS 11/06/21 07/27/23 (Mirapex) aspirin 81 mg tablet,delayed 81 mg PO DAILY 07/31/22 07/27/23 release (Adult Low Dose Aspirin) ergocalciferol (vitamin D2) 25,000 50,000 unit PO MONTHLY 07/31/22 07/27/23 unit capsule hydroxychloroquine 200 mg tablet 300 mg PO DAILY 07/31/22 07/27/23 (Plaquenil) pregabalin 100 mg capsule (Lyrica) 200 mg PO BID 07/31/22 07/27/23 montelukast 10 mg tablet 10 mg PO HS PRN Allergic Symptoms 11/27/22 07/27/23 (Singulair) prucalopride 2 mg tablet 2 mg PO DAILY 11/27/22 07/27/23 (Motegrity) Allergies Allergy/AdvReac Type Severity Reaction Status Date / Time No Known Allergies Allergy Verified 07/27/23 18:45 Review of Systems Review of Systems: All systems reviewed & are unremarkable except as noted in HPI and below Constitutional: Constitutional: Denies body ache(s), Denies chills, Denies fatigue, Denies fever(s), Denies headache(s), Denies malaise and Denies weakness Eyes: Eyes: Denies blurry vision, Denies irritation and Denies loss of vision ENT: Denies otalgia, Denies headache(s), Denies nasal discharge, Denies sinus pain and Denies sore throat Cardiovascular: Cardiovascular: Denies chest pain, Denies irregular heart rhythm and Denies dyspnea Respiratory: Respiratory: Denies dyspnea Gastrointestinal: Gastrointestinal: Denies abdominal pain, Denies melena, Denies hematochezia, Denies diarrhea, Denies nausea and Denies vomiting Musculoskeletal: Musculoskeletal: Denies back pain, Denies myalgias, Reports arthralgias and Reports joint swelling Integumentary/Breasts: Skin/Breast: Denies pruritus and Denies rash Neurologic: Denies headache(s), Denies loss of vision and Denies weakness Psychiatric: Psychiatric: Reports no additional psychiatric complaints Endocrine: Endocrine: Denies fatigue PMFSH Past Medical History Medical History Acute on chronic cholecystitis Anxiety Bursitis of shoulder, right Depression Fibromyalgia IBS (irritable bowel syndrome) Obstructive sleep apnea (adult) (pediatric) Other asthma Surgical History Surgical History History of appendectomy Hx of cholecystectomy Family History Family History Mother Hypertension Sibling Hypertension Family history of malignant neoplasm of breast in first degree relative Father Hypertension Other Diabetes mellitus Family history of malignant neoplasm Social History Social History Smoking status: Never smoker Alcohol intake: never Substance use: never Living arrangements: with family Occupation/Education: retired Gender identity (if verbalized by the patient): Female Spiritual care concerns: No Comments At time of signature, agree with nursing past medical, surgical, social and family history. There is no relevant family history pertinent to the presenting complaint.
[2023-07-27 18:48] VITALS: BP 134/88; PULSE 99; RESP 16; TEMP 36.4; O2SAT 100
[2023-07-27] MEDS: KETOROLAC (*BKC) 60 MG/2 ML VIAL IM (19:45)
[2023-07-27] MEDS: ONDANSETRON HCL ODT 4 MG TABLET SUBLINGUAL (19:46)
== END 2023-07-27 19:58 | disposition home or self-care (01) ==
PROVIDERS: Emergency Provider Nurse Practitioner Family; PCP Physician Assistant Medical
DX: S92.335A Nondisplaced fracture of third metatarsal bone, left foot, initial encounter for closed fracture (principal); S92.345A Nondisplaced fracture of fourth metatarsal bone, left foot, initial encounter for closed fracture; Z79.899 Other long term (current) drug therapy; W01.0XXA Fall on same level from slipping, tripping and stumbling without subsequent striking against object, initial encounter
CPT/HCPCS: 73630; 96372; 99214; A9270; G0463; J1885

== ENCOUNTER 2023-08-13 09:13 | Emergency (ER) | payer OTHER, SELFPAY ==
--- NOTE | ~2023-08-13 | XR_ITS ---
EXAMINATION: XR ankle RT min 3V DATE: 08/13/2023 10:21 INDICATION: Medial right ankle pain. Fall. TECHNIQUE: 4 views of right ankle were obtained. COMPARISON: Right ankle radiographs 06/12/2020 FINDINGS: Bone alignment is normal. No fracture. Joint spaces are normal. There are enthesophytes at the posterior and plantar aspects of calcaneal tuberosity. There is ankle soft tissue swelling. IMPRESSION: 1. No fracture. Reviewed, dictated and finalized at location A. IMPRESSION: 1. No fracture.
--- NOTE | ~2023-08-13 | XR_ITS ---
EXAMINATION: XR hand RT min 3V DATE: 08/13/2023 10:22 INDICATION: Pain at base of right thumb. Fall. TECHNIQUE: 3 views of right hand were obtained. COMPARISON: Right hand radiographs 06/12/2020 FINDINGS: Bone alignment is normal. No fracture. There is severe osteoarthritis of first carpometacar pal joint and mild osteoarthritis of some of the interphalangeal joints. There is moderate osteoarthr itis of first interphalangeal joint and third and fifth distal interphalangeal joints. IMPRESSION: 1. Polyarticular osteoarthritis. Reviewed, dictated and finalized at location A.
--- NOTE | ~2023-08-13 | XR_ITS ---
EXAMINATION: XR knee LT min 4V DATE: 08/13/2023 10:22 INDICATION: Proximal tibia pain. Fall. TECHNIQUE: 4 views of left knee were obtained. COMPARISON: Left knee radiograph 06/12/2020 FINDINGS: Bone alignment is normal. No fracture. Joint spaces are normal. No knee joint effusion. IMPRESSION: 1. No fracture. Reviewed, dictated and finalized at location A. IMPRESSION: 1. No fracture.
[2023-08-13 09:29] VITALS: BP 144/75; PULSE 92; RESP 16; TEMP 36; O2SAT 98
--- NOTE | 2023-08-13 09:57 | ED.EXTPRO ---
HPI - Extremity Problem General Chief complaint: Fall Stated complaint: right ankle, left knee, right hand Time Seen by Provider: 08/13/23 09:49 Source: patient and RN notes reviewed Mode of arrival: ambulatory Limitations: no limitations History of Present Illness HPI Narrative: Patient presents today complaining of pain to her right hand, left knee, and right ankle after a fall from a knee scooter when she was trying to go down a stair approximately 1 week ago. Patient was using a knee scooter due to broken metatarsals on the left foot as she is in a walking boot on the left side from an injury at the end of July. Denies numbness or tingling in her new injuries. She currently rates her pain 05/11. She has not tried any [id number] medication for symptoms prior to arrival. Related Data Home Medications Medication Instructions Recorded Confirmed duloxetine 60 mg capsule,delayed 60 mg PO BID 03/29/20 08/13/23 release (Cymbalta) albuterol 90 mcg/actuation aerosol 90 mcg inhalation DAILY 11/06/21 08/13/23 inhaler folic acid 1 mg tablet 1 mg PO DAILY 11/06/21 08/13/23 pramipexole 0.125 mg tablet 0.125 mg PO HS 11/06/21 08/13/23 (Mirapex) aspirin 81 mg tablet,delayed 81 mg PO DAILY 07/31/22 08/13/23 release (Adult Low Dose Aspirin) ergocalciferol (vitamin D2) 25,000 50,000 unit PO MONTHLY 07/31/22 08/13/23 unit capsule hydroxychloroquine 200 mg tablet 300 mg PO DAILY 07/31/22 08/13/23 (Plaquenil) pregabalin 100 mg capsule (Lyrica) 200 mg PO BID 07/31/22 08/13/23 montelukast 10 mg tablet 10 mg PO HS PRN Allergic Symptoms 11/27/22 08/13/23 (Singulair) prucalopride 2 mg tablet 2 mg PO DAILY 11/27/22 08/13/23 (Motegrity) leflunomide 20 mg tablet 20 mg PO DAILY 08/13/23 08/13/23 ursodiol 300 mg capsule 300 mg PO BID 08/13/23 08/13/23 Allergies Allergy/AdvReac Type Severity Reaction Status Date / Time No Known Allergies Allergy Verified 08/13/23 09:31 Review of Systems Review of Systems: CONSTITUTIONAL: Denies body aches, fever, chills, or sweats. EYES: Denies visual changes, redness, or discharge. ENT: Denies rhinorrhea, congestion, sore throat, or otalgia. CARDIOVASCULAR: Denies chest pain, palpitations, or edema. RESPIRATORY: Denies cough or dyspnea. GASTROINTESTINAL: Denies abdominal pain, nausea, vomiting, or diarrhea. GENITOURINARY: Denies dysuria or hematuria. SKIN: Denies rash, itching, or wounds. MUSCULOSKELETAL: Denies back pain. + left knee injury, right hand injury, right ankle injury NEUROLOGIC: Denies headache, numbness, tingling, or weakness. PSYCH: Denies depression or anxiety. [facility] Past Medical History Medical History Acute on chronic cholecystitis Anxiety Bursitis of shoulder, right Depression Fibromyalgia IBS (irritable bowel syndrome) Obstructive sleep apnea (adult) (pediatric) Other asthma Surgical History Surgical History History of appendectomy Hx of cholecystectomy Family History Family History Mother Hypertension Sibling Hypertension Family history of malignant neoplasm of breast in first degree relative Father Hypertension Other Diabetes mellitus Family history of malignant neoplasm Social History Social History Smoking status: Never smoker Alcohol intake: never Substance use: never Living arrangements: with family Occupation/Education: retired Gender identity (if verbalized by the patient): Female Spiritual care concerns: No Comments At time of signature, I have reviewed and agree with nursing past medical, surgical, social and family history unless otherwise noted. Please see nursing chart for further information. There is no relevant family history pertinent to the presentin
== END 2023-08-13 11:00 | disposition home or self-care (01) ==
PROVIDERS: Emergency Provider Nurse Practitioner; PCP Physician Assistant Medical
DX: S93.401A Sprain of unspecified ligament of right ankle, initial encounter (principal); S60.221A Contusion of right hand, initial encounter; S83.92XA Sprain of unspecified site of left knee, initial encounter; W10.9XXA Fall (on) (from) unspecified stairs and steps, initial encounter; J45.909 Unspecified asthma, uncomplicated; Z79.82 Long term (current) use of aspirin; F41.9 Anxiety disorder, unspecified; F32.A Depression, unspecified
CPT/HCPCS: 73130; 73564; 73610; 99213; G0463